=== PATIENT | female | born 2000 | race Caucasian/White ===

== ENCOUNTER 2018-06-13 07:44 | Outpatient (CLI) | payer BC ==
--- NOTE | 2018-06-13 15:09 | NM ---
NUCLEAR MEDICINE GASTRIC EMPTYING SCAN: HISTORY: Nausea and vomiting. COMPARISON: None. TECHNIQUE: The patient was served 1.8 mCi of Technetium 99m sulfur colloid in a standard egg mixture. FINDINGS: The patient had to be switched to a different camera after 2-hour imaging. The patient was switched due to the camera that the patient was initially in had to be utilized for a GI bleed. FINDINGS: At 31 minutes, there is 13% emptying. At 70 minutes, there is 30% emptying. At 119 minutes, there is 60% emptying. Based on these numbers, T-1/2 time is 103 minutes. There is 100% emptying on the 4-hour image. IMPRESSION: T-1/2 time of 103 minutes. POS: [facility]
== END 2018-06-13 07:45 | disposition home or self-care (01) ==
LOC: NM 07:44
PROVIDERS: ATTEND Internal Medicine
DX: R11.2 Nausea with vomiting, unspecified (principal)
CPT/HCPCS: 78264; A9541

== ENCOUNTER 2019-01-12 07:38 | Outpatient (CLI) | payer BC ==
--- NOTE | 2019-01-12 10:52 | NM ---
HEPATOBILIARY SCAN: Date: 01/12/19 HISTORY: Nausea and vomiting, unspecified. Right-sided abdominal pain. No gallstones on ultrasound of 01/06/19 from [facility]. RADIOPHARMACEUTICAL: 5.1 mCi technetium-99m mebrofenin injected intravenously. FINDINGS: There is good tracer extraction by the liver with prompt excretion into the biliary tract and small b owel loops, and normal filling of the gallbladder. The calculated gallbladder ejection fraction measu res 81% following an oral fatty meal. IMPRESSION: Normal exam. POS: [facility]
== END 2019-01-12 07:39 | disposition home or self-care (01) ==
LOC: NM 07:38
PROVIDERS: ATTEND Physician Assistant Medical
DX: K30 Functional dyspepsia (principal); R10.11 Right upper quadrant pain; R19.4 Change in bowel habit; R68.81 Early satiety; F41.9 Anxiety disorder, unspecified; R11.2 Nausea with vomiting, unspecified
CPT/HCPCS: 78227; A9537

== ENCOUNTER 2019-05-22 12:07 | Outpatient (CLI) | payer BC ==
--- NOTE | 2019-05-22 17:19 | NM ---
RADIONUCLIDE DIURETIC RENOGRAM: 05/22/19 HISTORY: 18-year-old female with unspecified hydronephrosis, UPJ obstruction. RADIOPHARMACEUTICAL: 9 millicuries technetium 99m - MAG3 injected intravenously. DIURETIC: 35 mg IV Lasix administered 15 minutes prior to the injection of the radiopharmaceutical. The patient has a Frias catheter placed in the bladder. FINDINGS: There is normal flow and tracer extraction by the kidneys bilaterally with a differential function of 51% on the left and 49% on the right. There is normal tracer extraction noted bilaterally into the u reters and the urinary bladder. The renogram curves are bilaterally downsloping. Excretion half times measure 4.3 minutes on the left and 4.7 minutes on the right. IMPRESSION: Normal exam. No evidence of urinary tract obstruction. POS: [facility]
== END 2019-05-22 12:08 | disposition home or self-care (01) ==
LOC: NM 12:07
PROVIDERS: ATTEND Urology
DX: N13.0 Hydronephrosis with ureteropelvic junction obstruction (principal)
CPT/HCPCS: 78708; A4641; A9562